=== PATIENT | female | born 1985 | race Caucasian/White ===

== ENCOUNTER 2017-01-24 15:46 | Emergency (ER) | payer OTHER ==
[~2017-01-24] VITALS: Ht 157.5 cm; Wt 67.0 kg
[2017-01-24 15:48] VITALS: Ht 157.5 cm; Wt 67.0 kg
[2017-01-24] MEDS ORDERED: LORAZEPAM 2 MG INJ IM STA (16:08)
--- NOTE | 2017-01-24 18:02 | ERD ---
ER Documentation Chief Complaint Date/Time DATE: 01/24/17 TIME: 17:53 Chief Complaint PANICK ATTACK HPI 31 year old female presents to the ER stating that she was very stressed at work because of her boss and then she started experiencing a lot of anxiety. She admits to numbness tingling ion hands bilaterally, shortness of breath. Denies chest pain. She states she has history of panic attacks. Rates moderates ROS All systems reviewed and are negative except as per history of present illness. Allergies Allergies: Coded Allergies: acetaminophen (Verified Allergy, Mild, HIVES, 01/24/17) hydrocodone (Verified Allergy, Mild, HIVES, 01/24/17) PMhx/Soc History of Surgery: Yes (csx1) Anesthesia Reaction: No Hx Neurological Disorder: No Hx Respiratory Disorders: No Hx Cardiac Disorders: No Hx Psychiatric Problems: Yes (anxiety, depression) Hx Miscellaneous Medical Probl: No Hx Alcohol Use: Yes Hx Substance Use: No Hx Tobacco Use: No Physical Exam Vitals Vital Signs Date Time Temp Pulse Resp B/P Pulse Ox O2 Delivery O2 Flow Rate FiO2 01/24/17 18:03 77 22 148/92 99 Room Air 01/24/17 15:48 98.1 85 18 138/85 99 Physical Exam Const: [] Head: Atraumatic Eyes: Normal Conjunctiva ENT: Normal External Ears, Nose and Mouth. Neck: Full range of motion..~ No meningismus. Resp: Clear to auscultation bilaterally Cardio: Regular rate and rhythm, no murmurs Abd: Soft, non tender, non distended. Normal bowel sounds Skin: No petechiae or rashes Back: No midline or flank tenderness Ext: No cyanosis, or edema Neur: Awake and alert Psych: Normal Mood and Affect Results 24 hrs Current Medications Medications (Trade) Dose Ordered Sig/[place] Route PRN Reason Start Time Stop Time Status Last Admin Dose Admin Lorazepam (Ativan) 1 mg ONCE STAT IM 01/24/17 16:08 01/24/17 16:09 DC 01/24/17 16:12 Procedures/MDM 31-year-old female year old patient presents to the ED with palpitations and shortness of breath, most likely related to body's reaction to anxiety. Differentials include infection, cardiac diseases, pulmonary diseases, hyperthyroidism/hypothyroidism, myocardial infarction, endocrine or metabolic disease, nerve compression. nutritional deficiency, multiple sclerosis, Guillain -Canones syndrome, substance abuse. Clinically, patient appears anxious. She was given Ativan and does a lot better. Patient is stable. Neurovascularly intact. Discussed to return to the ER if condition worsens or not improving as expected. Patient understood and agreed with this plan. Departure Diagnosis: Primary Impression: Anxiety Condition: Stable Patient Instructions: Your Body's Response to Anxiety, Treating Panic Disorder (Panic Attack) with Therapy, Anxiety Reaction Additional Instructions: FOLLOW UP WITH YOUR PRIMARY CARE PHYSICIAN TOMORROW.Return to this facility if you are not improving as expected. Take all medicines as directed. Return to this facility if you are not improving as expected. RIDGE REESE PA-C Jan 24, 2017 18:02
[2017-01-24 18:03] VITALS: BP 148/92; PULSE 77; RESP 22
== END 2017-01-24 18:04 | disposition home or self-care (01) ==
LOC: FTE 15:46
DX: F41.9 Anxiety disorder, unspecified (principal)
CPT/HCPCS: 96372; J2060; Z7502